=== PATIENT | male | born 1950 | race Caucasian/White ===

== ENCOUNTER 2021-01-26 04:56 | Day surgery (SDC) | payer OTHER, BC ==
[2021-01-24 13:44] VITALS: BMI 23.9
[2021-01-26 12:33] VITALS: BP 147/66; PULSE 60; TEMP 98
== END 2021-01-26 12:33 | disposition home or self-care (01) ==
LOC: JASU-ENDO 04:56
PROVIDERS: ATTEND Internal Medicine Gastroenterology
PROC: 0DJD8ZZ Inspection of Lower Intestinal Tract, Via Natural or Artificial Opening Endoscopic (ICD-10-PCS; principal; 2021-01-26 11:00)
DX: Z12.11 Encounter for screening for malignant neoplasm of colon (principal); K57.30 Diverticulosis of large intestine without perforation or abscess without bleeding; Z86.010 Personal history of colon polyps; I10 Essential (primary) hypertension